=== PATIENT | male | born 1995 | race African-American/Black ===

== ENCOUNTER 2019-10-22 02:19 | Emergency (ER) | payer OTHER ==
[~2019-10-22] VITALS: Ht 182.9 cm; Wt 102.0 kg
[2019-10-22] MEDS ORDERED: KETOROLAC 60MG/2ML VIAL IM ONE (03:00)
[2019-10-22 04:03] VITALS: BP 111/55
== END 2019-10-22 04:24 | disposition home or self-care (01) ==
LOC: ER 03:09
DX: R55 Syncope and collapse (principal); M54.5 Low back pain; F10.129 Alcohol abuse with intoxication, unspecified; F12.10 Cannabis abuse, uncomplicated; Y90.9 Presence of alcohol in blood, level not specified
CPT/HCPCS: 71045; 72100; 93005; 96372; 99284; J1885